=== PATIENT | female | born 1965 | race Asian ===

== ENCOUNTER 2018-08-03 09:01 | Day surgery (SDC) | payer OTHER ==
[~2018-08-03] VITALS: Ht 167.6 cm; Wt 55.3 kg
[2018-08-03 09:07] VITALS: Ht 167.6 cm; Wt 55.3 kg
[2018-08-03 10:31] LABS: CALCIUM 8.3 mg/dL (8.5-10.1); CHLORIDE SERUM 108 mmol/L (98-107); CREATININE SERUM 0.7 mg/dL (0.6-1.0); GFR1 > 60 mL/min; GLUCOSE SERUM 89 mg/dL (74-106); POTASSIUM SERUM 3.8 mmol/L (3.5-5.1); SODIUM SERUM 142 mmol/L (136-145)
[2018-08-03 10:36] LABS: ALBUMIN 3.5 g/dL (3.4-5.0); ALKALINE PHOSPHATASE 67 U/L (46-116); ALT/SGPT 29 U/L (14-59); AST/SGOT 29 U/L (15-37); BILIRUBIN TOTAL 0.4 mg/dL (0.20-1.00); TOTAL PROTEIN, SERUM 6.5 g/dL (6.4-8.2)
[2018-08-03 11:39] LABS: BASOPHIL % 0.8 % (0-2); PLATELET COUNT 186 x10^3mcL (130-400); RED CELL DISTRIBUTION WIDTH 12.6 % (11.5-14.5)
[2018-08-03 15:06] VITALS: BP 115/60
== END 2018-08-03 14:20 | disposition home or self-care (01) ==
LOC: ED 09:01 → DS 11:01 → EDBEDREQ 11:25 → DS 14:20
PROVIDERS: Emergency Medicine; Obstetrics & Gynecology
PROC: 0UDB8ZZ Extraction of Endometrium, Via Natural or Artificial Opening Endoscopic (ICD-10-PCS; 2018-08-03)
PROC: 0UBC8ZX Excision of Cervix, Via Natural or Artificial Opening Endoscopic, Diagnostic (ICD-10-PCS; principal; 2018-08-03 11:00)
DX: N93.8 Other specified abnormal uterine and vaginal bleeding (principal)
CPT/HCPCS: J1170; J2250; J2704; J7030; J7120; Q0092

== ENCOUNTER 2018-08-04 14:31 | Emergency (ER) | payer OTHER ==
[~2018-08-04] VITALS: Ht 167.6 cm; Wt 55.3 kg
[2018-08-04 14:43] VITALS: BP 120/67; Ht 167.6 cm; Wt 55.3 kg
== END 2018-08-04 16:38 | disposition home or self-care (01) ==
LOC: ED 14:31
DX: S00.532A Contusion of oral cavity, initial encounter (principal); Z86.19 Personal history of other infectious and parasitic diseases; X58.XXXA Exposure to other specified factors, initial encounter; Y93.89 Activity, other specified; Y92.89 Other specified places as the place of occurrence of the external cause; Y99.8 Other external cause status